=== PATIENT | male | born 1955 | race Caucasian/White ===

== ENCOUNTER → 2018-06-02 | Outpatient (CLI) | payer BC | LOC: COL.RAD 05-27 08:30 | DX: M24.152 Other articular cartilage disorders, left hip (principal); M24.151 Other articular cartilage disorders, right hip; M76.02 Gluteal tendinitis, left hip; M70.61 Trochanteric bursitis, right hip | CPT/HCPCS: A9585; Q9967 ==

== ENCOUNTER 2018-12-23 20:25 | Emergency (ER) | payer BC ==
[~2018-12-23] VITALS: Ht 182.9 cm; Wt 83.6 kg
[2018-12-23 20:30] VITALS: BP 146/87; TEMP 98.9
[2018-12-23] MEDS ORDERED: PRINIVIL10 MG PO (21:01)
[2018-12-23] MEDS ORDERED: CEPHALEXIN500 M1 PO (21:21)
[2018-12-23 21:35] VITALS: PULSE 72
== END 2018-12-23 21:35 | disposition home or self-care (01) ==
LOC: COL.ER 20:25
DX: S00.35XA Superficial foreign body of nose, initial encounter (principal); I10 Essential (primary) hypertension; W45.8XXA Other foreign body or object entering through skin, initial encounter